=== PATIENT | female | born 1945 | race Caucasian/White ===

== ENCOUNTER → 2019-11-19 12:06 | Outpatient (BNVA) | payer MEDICARE, MEDICAID, SELFPAY | PROVIDERS: Family Provider Family Medicine; PCP Family Medicine; Visit Provider Family Medicine | DX: E78.00 Pure hypercholesterolemia, unspecified (principal); B37.9 Candidiasis, unspecified; J01.00 Acute maxillary sinusitis, unspecified; H61.23 Impacted cerumen, bilateral; I10 Essential (primary) hypertension; Z68.33 Body mass index [BMI] 33.0-33.9, adult | CPT/HCPCS: 80053; 80061 ==

== ENCOUNTER → 2020-08-10 11:44 | Outpatient (BNVA) | payer MEDICARE, MEDICAID, SELFPAY | PROVIDERS: Family Provider Family Medicine; PCP Family Medicine; Visit Provider Family Medicine | DX: E78.00 Pure hypercholesterolemia, unspecified (principal); I10 Essential (primary) hypertension; N39.0 Urinary tract infection, site not specified; A08.4 Viral intestinal infection, unspecified; F41.1 Generalized anxiety disorder; Z68.33 Body mass index [BMI] 33.0-33.9, adult | CPT/HCPCS: 80053; 80061; 81003; 85025 ==